=== PATIENT | male | born 1980 | race Caucasian/White ===

== ENCOUNTER 2016-09-28 16:26 | Inpatient (IN) | payer BC, OTHER ==
[~2016-09-28] VITALS: Ht 170.2 cm; Wt 85.3 kg
[2016-09-28] MEDS ORDERED: LORAZEPAM 1 MG TABLET PO PRN (19:30)
[2016-09-28] MEDS ORDERED: ONDANSETRON ODT 4 MG TAB.RAPDIS SL PRN (19:30)
[2016-09-28] MEDS ORDERED: DICYCLOMINE HCL 20 MG TABLET PO PRN (19:30)
[2016-09-28] MEDS ORDERED: MIRALAX 17 GM POWD.PACK PO PRN (19:30)
[2016-09-28] MEDS ORDERED: BACLOFEN 20 MG TABLET PO PRN (19:30)
[2016-09-28] MEDS ORDERED: ONDANSETRON 4 MG/2 ML VIAL IM PRN (19:30)
[2016-09-28] MEDS ORDERED: HYDROXYZINE PAMOATE 25 MG CAPSULE PO PRN (19:30)
[2016-09-28] MEDS ORDERED: MAGNESIUM HYDROXIDE 30 ML LIQUID UDC PO PRN (19:30)
[2016-09-28] MEDS ORDERED: MAG HYDROX/AL HYDROX/SIMETH 30 ML LIQUID UDC PO PRN (19:30)
[2016-09-28] MEDS ORDERED: LORAZEPAM 2 MG/1 ML VIAL IM PRN (19:30)
[2016-09-28] MEDS ORDERED: LOPERAMIDE HCL 2 MG CAPSULE PO PRN ×2 (19:30)
[2016-09-28] MEDS ORDERED: ACETAMINOPHEN 325 MG TABLET PO PRN (19:30)
[2016-09-28] MEDS ORDERED: PATIENT MAY USE OWN MED- MD OK PO PRN (19:30)
[2016-09-28 20:10] VITALS: BP 142/93
--- NOTE | 2016-09-28 20:25 | NUR ---
Pre-admission assessment Patient is a 36-year old, male, seen at intake, AAOx4, no SOB and no anxiety noted at this time. Discussed with patient admission policies of the unit. Patient is coherent and able to respond to questions appropriately. Patient reported that for the past 6 weeks he has been staying either in hotels or at friend's place. Vital signs taken and as follows: BS=133/93, P=94, O2 sat on RA=98%, RR=20, T=98.2. Pt verbalized instructions and teachings regarding disposal of narcotic and other controlled home meds, unit protocols such as taking of vital signs Q4H and handling and disposal of contraband.
[2016-09-28 20:34] LABS: BASOPHILS # (AUTO) 0.1 K/uL (0.0-8.0); BASOPHILS % (AUTO) 0.5 % (0.0-2.0); EOSINOPHILS # (AUTO) 0.1 K/uL (0.0-0.7); EOSINOPHILS % (AUTO) 0.5 % (0.0-7.0); HEMATOCRIT 45.5 % (40-50); HEMOGLOBIN 14.9 G/DL (14.0-18.0); LYMPHOCYTES % (AUTO) 18.7 % (20.5-51.5); MEAN CORPUSCULAR HEMOGLOBIN 29.9 UUG (27.0-31.0); MEAN CORPUSCULAR HGB CONC 33 g/dL (32.0-37.0); MEAN CORPUSCULAR VOLUME 91.3 FL (82.0-92.0); MONOCYTES # (AUTO) 0.6 K/UL (0.1-1.30); NEUTROPHILS # (AUTO) 7.9 K/UL (1.8-8.9); NEUTROPHILS % (AUTO) 74.3 % (38.5-71.5); PLATELET COUNT (AUTO) 403 K/UL (150-450); RED BLOOD CELL COUNT(AUTO) 4.99 MIL/UL (4.7-6.1); WHITE BLOOD COUNT (AUTO) 10.7 K/UL (4.0-11.2)
[2016-09-28 20:43] LABS: ETHANOL < 3 MG/DL (0-0)
[2016-09-28 20:45] VITALS: BP 140/89
[2016-09-28 20:47] LABS: ALANINE AMINOTRANSFERASE 30 U/L (16-63); ALKALINE PHOSPHATASE 97 U/L (50-136); ASPARTATE AMINOTRANSFERASE 20 U/L (15-37); BILIRUBIN,TOTAL 0.3 mg/dL (0.2-1.0); CARBON DIOXIDE 26 mmol/L (21-32); CHLORIDE 103 mmol/L (98-107); CREATININE 1.3 mg/dL (0.6-1.3); GLUCOSE 131 mg/dL (74-106); MAGNESIUM 2.1 mg/dL (1.8-2.4); POTASSIUM 3.9 mmol/L (3.5-5.1); TOTAL PROTEIN, SERUM 7.8 g/dL (6.4-8.2); UREA NITROGEN, BLOOD 16 mg/dL (7-18)
--- NOTE | 2016-09-28 20:50 | NUR ---
ADMISSION Patient is a 36-year old, male, admitted and escorted by [facility] at 2039 to unit. Patient verbalized that for the past 6 weeks, he has been staying in hotels or at his friends' place. Skin check done, no open skin noted. Patient denies Suicidal Ideation nor Homicidal Ideation at this time. No edema noted. Pt is ambulatory with steady gait. Pt stands 5'7" and weighs 188 pounds per standing scale. Vital signs are as follows: BP-140/93, T-98.4, P-82, RR-18 and SPO2 on RA=99%. Patient is AAOx4 and with no anxiety noted at this time. Lung sounds clear bilaterally upon auscultation. No cough noted and bowel sounds are present on all quadrants. PERRLA and pupils are 4 mm upon visual check. Pt reports No Known Allergies, on Regular Diet and is Full Code. Pt reports one episode of Partial Complex Seizure in 2012. Per pt, withdrawal symptoms are anxiety, depression, irritability, short attention span, generalized body pain, emotional, insomnia, restless legs, chills and sweats. Pt reports using the following substances: 1) Xtampza-started at age 21 and for the past 2 months has been using 40 mg PO daily until 09/20/2016, the day when he attempted suicide by trying to overdose on Xtampza. Pt brought himself to the ER of [facility] on the same day of trying to commit suicide. 2) Oxycontin-per pt, this was started on 09/20/2016 when he was admitted to the [facility] of [facility] after his ER visit due to suicide attempt. Last use was 09/27/2016 0930. 3) Methadone-started at age 32 and for the past 3 weeks he has been using 20 mg PO daily. Last use was 09/28/2016 at 0930. Patient verbalized the she does not take other substances besides the one mentioned above. He tested positive for Amphetamines for his UDS and patient stated that it is due to his medication Vyvanse Patient informed PMHx of Anxiety, Depression, one episode of Partial Complex Seizure in 2012, Viral Meningitis in 2010, Herpes-HSV 2 in 2011, Encephalitis in 2011, Occipital Neuralgia and attempted suicide last 09/20/2016. Home medications were reconciled. No PCP as of the moment but Psychiatrist is Dr. Chavez Hall. Patient denies smoking cigarettes. Oriented patient to room and instructed with the use of the call light, placed within reach. Fall, universal, seizure and safety precautions implemented. No c/o significant pain at this time. All needs met. Information relayed to Dr. Phillip. Patient refused PNA vaccine and Flu vaccine is out of season. COWS=6. Will continue to monitor.
[2016-09-28 20:55] LABS: *AMPHETAMINE, URINE POSITIVE (NEGATIVE); *BARBITURATE, URINE NEGATIVE (NEGATIVE); *CANNABINOID, URINE NEGATIVE (NEGATIVE); *COCCAINE, URINE NEGATIVE (NEGATIVE); *OPIATE, URINE NEGATIVE (NEGATIVE); *PHENCYCLIDINE SCREEN,URINE NEGATIVE (NEGATIVE)
[2016-09-28] MEDS: PREGABALIN 25 MG CAPSULE PO SCH (20:58)
[2016-09-28 21:07] LABS: THYROID STIMULATING HORMONE 1.201 mIU/mL (0.358-3.740)
[2016-09-28] MEDS ORDERED: PREG50CA PO ×2 (22:02)
[2016-09-28] MEDS ORDERED: LAMO200T PO (22:02)
[2016-09-28] MEDS ORDERED: MELA5TAB PO (22:02)
[2016-09-28] MEDS ORDERED: ACET-2605 PO (22:02)
[2016-09-28] MEDS ORDERED: LISD50CA2 PO (22:02)
[2016-09-28] MEDS ORDERED: TRAZ-144 PO (22:02)
[2016-09-28] MEDS ORDERED: BUPR-96 PO (22:02)
[2016-09-28] MEDS ORDERED: ESCI20TA PO (22:02)
[2016-09-28] MEDS ORDERED: METH150T PO (22:02)
[2016-09-28] MEDS ORDERED: VALA10002 PO (22:06)
[2016-09-28] MEDS: CLONIDINE HCL 0.1 MG TABLET PO PRN (22:18)
--- NOTE | 2016-09-28 22:18 | NUR ---
RN note PRN Clonidine Pt with VO=805/92, Pulse=94. Administered Clonidine 0.1 mg PO as ordered. Will reassess.
--- NOTE | 2016-09-28 23:15 | NUR ---
RN note reassess Pt's XJ=048/92, P=85. Clonidine was effective.
[2016-09-28] MEDS: TRAZODONE 50 MG TABLET PO PRN (23:25)
--- NOTE | 2016-09-28 23:26 | NUR ---
RN note PRN Robaxin, Trazodone and Benadryl Pt c/o generalized muscle pain=6/10 and per pt "I have an extreme case of insomnia". Dr. Phillip made aware. Administered Robaxin 750 mg PO, Trazodone 50 mg PO and Benadryl 50 mg PO. Will reassess.
[2016-09-28] MEDS ORDERED: METHOCARBAMOL 750 MG TABLET PO PRN (23:30)
[2016-09-28] MEDS ORDERED: diphenhydrAMINE 50 MG CAPSULE PO PRN (23:30)
[2016-09-28] MEDS ORDERED: METHOCARBAMOL 750 MG TABLET ONE (23:35)
[2016-09-28] MEDS ORDERED: diphenhydrAMINE 50 MG CAPSULE ONE (23:35)
[2016-09-29] VITALS: BP 130/85
--- NOTE | 2016-09-29 00:30 | NUR ---
RN note reassess Pt asleep on bed, no SOB nor facial grimacing noted.
[2016-09-29 04:00] VITALS: BP 132/88
--- NOTE | 2016-09-29 07:00 | NUR ---
Start of Shift Report from night nurse: pt is 36 y/o male here for Opiates dependence r/t oxycodone 40mg PO/d for 2 months, Methadone 20mg PO/d for 3 wks, Xtampza unknown does and frequency, OxyContin 20mg PO/d after admit to [facility] psych unit s/p suicidal attempt with OD on Opiate and was given the last dose 09/27/16; No taper or PRN given until MD approved and to be started 09/30/16 at [address] with COWS scale, eval and status. Pt is a full coded, NKA, Regular Diet, Fall and Seizure precautions ordered. V/S stable. Skin is intact. PRN Trazodone, Benadryl and Robaxin given last night. USD + Amphetamine since the states that he take a medication for ADHD. HHx: meningitis 2010, Seizure 2012, HSV-1, Anxiety, depression, encephalitis 2011, Occipital neuroglia. Last COWS 4. No abnormal labs endorsed to me. Pt is asleep in room. Will cont. to monitor the pt.
--- NOTE | 2016-09-29 07:09 | NUR ---
End of Shift Patient is a 36-year old, male, admitted for Opioid Dependence. Pt with MHx of Viral Meningitis (2010), Partial Complex Seizure (2012), Herpes-HSV 2 (2011), Encephalitis (2011), Occipital Neuralgia, Attempted Suicide-09/20/2016, Anxiety and Depression. Pt on Regular Diet, is Full Code and with NKA. Pt is AAOx4, with mild anxiety noted. No SOB noted. Pt is ambulatory with steady gait, no skin issues. Fall, seizure, universal and safety prec in place. Call light within reach. Latest COWS=4, slept for 5 hours. Endorsed to AM shift nurse for continuity of care.
--- NOTE | 2016-09-29 07:10 | NUR ---
Start of Shift Report from the night nurse: pt is a 56 y/o male here for Etoh r/t Vodka 1 pint a day for 2 months, Marijuana occasionally used monthly, benzo r/t Valium 1tab of unknown dose used occasionally; 5 day Ativan taper ordered. Pt is a full code, NKA, fall and seizure precautions ordered. HHx: Chronic pain, HTN, Raymundo's Palsy, Hernia 2010 and multiple relapses. Skin is intact. No PRN'd given last night. No new orders or labs endorsed to me. Last CIWA 2. Pt is asleep in the room. Will cont. to monitor the pt. Addendum: 09/29/16 at 0807 by ANTONY ARRINGTON RN Error: WRONG PT CHARTING OF START OF SHIFT.
[2016-09-29 08:00] VITALS: BP 112/77
[2016-09-29] MEDS ORDERED: TUBERCULIN,PURIF.PROT.DERIV. 5 TU/0.1 ML TEST ID ONE (09:00)
--- NOTE | 2016-09-29 09:45 | NUR ---
Medication Non-Administration and PRN Medication Administration Pt refused the Lyrica scheduled at 0900. I will notify Dr. Phillip since the pt states that he wants it given with other medications. Pt c/o PHILLIPS; PRN Excedrin 1tab given as ordered. Will reassess in 1H.
[2016-09-29] MEDS: MULTIVITAMINS,THERAPEUTIC TABLET PO SCH (09:58)
[2016-09-29] MEDS: PREGABALIN 25 MG CAPSULE PO SCH ×3 (09:59→21:45)
[2016-09-29] MEDS: ASPIRIN/ACETAMINOPHEN/CAFFEINE TABLET PO PRN (10:11)
--- NOTE | 2016-09-29 10:45 | NUR ---
Reassessment Pt denies PHILLIPS; Excedrin is effective. Will cont. to monitor the pt.
[2016-09-29] MEDS ORDERED: PATIENT MAY USE OWN MED- MD OK PO PRN (11:00)
[2016-09-29] MEDS ORDERED: PREGABALIN 25 MG CAPSULE PO ONE (11:15)
[2016-09-29] MEDS ORDERED: METHOCARBAMOL 750 MG TABLET PO ONE (11:15)
[2016-09-29] MEDS: diphenhydrAMINE 50 MG CAPSULE PO PRN ×2 (11:44→21:45)
--- NOTE | 2016-09-29 11:45 | NUR ---
New Orders & PRN Medication Administration Pt is in his room, in bed very agitated, anxious and irritable re: the medication reconciliation that needs to be done; I explained to the pt that the psych meds are to be reconciled by the psychiatrist and that he will be in today to reconcile them. Pt c/o muscle pain and tension; Lyrica 50mg ONCE with PRN Benadryl 50mg and Robaxin 750mg. Will reassess in 30minutes to 1H. Will cont. to monitor the pt.
[2016-09-29 12:00] VITALS: BP 112/73
--- NOTE | 2016-09-29 12:45 | NUR ---
Reassessment Pt is in bed and states that the muscle tension is decreased, and has decreased anxiety; Benadryl is effective. Will cont. to monitor the pt.
[2016-09-29] MEDS ORDERED: ACETAMINOPHEN ES 500 MG TABLET PO PRN (13:00)
[2016-09-29] MEDS ORDERED: CYCL10TA9 PO (14:23)
--- NOTE | 2016-09-29 14:46 | NUR ---
Therapist prompted client about group times. Client stated he would try to make it to the afternoon group if he is "feeling ok."
[2016-09-29] MEDS: IBUPROFEN 600 MG TABLET PO PRN ×2 (14:47→23:04)
[2016-09-29] MEDS: METHOCARBAMOL 750 MG TABLET PO SCH ×2 (14:52→21:45)
--- NOTE | 2016-09-29 14:56 | NUR ---
PRN Medication Administration and New Orders Pt is room very agitated, restless, and angry re: pending psychiatric evaluation and repeately making the same statements after explanations of evaluations, pt c/o neck aching with muscle tension and constipation; PRN's: Miralax, Motrin 600mg and Ativan 2mg for anxiety all given with scheduled 1500 medications. New orders in process for Lexapro, Wellbutrin and Lamictal pending. Will reassess in 1H.
--- NOTE | 2016-09-29 15:22 | NUR ---
MD COMMUNICATION Spoke to Dr. Lara and got telephone orders to continue patient home medications. Orders added: Wellbutrin Xl 150mg PO daily, Lexapro 20 mg PO daily, and Lamictal 200 mg PO daily. Read back to physician. Primary nurse to administer medications as ordered.
[2016-09-29] MEDS: ESCITALOPRAM OXALATE 10 MG TABLET PO SCH (15:33)
[2016-09-29] MEDS: LAMOTRIGINE 200 MG TABLET PO SCH ×2 (15:33→18:30)
[2016-09-29] MEDS: buPROPion XL 150 MG TAB.SR.24H PO SCH (15:33)
[2016-09-29 16:00] VITALS: BP 147/88
--- NOTE | 2016-09-29 16:00 | NUR ---
Reassessment Pt is taking a nap in his bed and resting, no non-verb s/sx of pain, anxiety or respiratory depression noted. Will cont. to monitor the pt.
[2016-09-29] MEDS ORDERED: PATIENT MAY USE OWN MED- MD OK PO SCH (17:30)
--- NOTE | 2016-09-29 18:50 | NUR ---
Medication Non-Administration No administration of Lamictal scheduled at 1830pm since the home medication is reconciled to be given as " 200mg daily" and the Lamictal 200mg given as a ONCE dose at 1533pm. Will cont. to monitor the pt.
--- NOTE | 2016-09-29 19:21 | NUR ---
End of the Shift Report to the night nurse: pt is 36 y/o male here for Opiates dependence r/t oxycodone 40mg PO/d for 2 months, Methadone 20mg PO/d for 3 wks, Xtampza unknown does and frequency, OxyContin 20mg PO/d after admit to [facility] psych unit s/p suicidal attempt with OD on Opiate and was given the last dose 09/27/16; No taper or PRN given until approved and to be started 09/30/16 at [address] with COWS scale, eval and status. Pt is a full coded, NKA, Regular Diet, Fall and Seizure precautions ordered. V/S stable. Skin is intact. PRN Ativan 2mg at 1456pm, Motrin, Miralax and Benadryl. New Orders for medication reconciliation of Wellbutrin, Lexapro and Lamictal also Lyrica to be given with Robaxin & with pt's request Benadryl . HHx: meningitis 2010, Seizure 2012, HSV-1, Anxiety, depression, encephalitis 2011, Occipital neuroglia. Pt is A&O x 4 ambulates independently. Features symmetrical, PERRLA 4-5mm dilated, mild headache and moderate muscle tension. Pt denies chest pain and no SOB noted. No N/V/D noted but c/o constipation r/t narcotic abuse so PRN Miralax given. Pt denies dysuria. Skin is intact and PPD test done on Rt FA. No hallucinations, delusions or suicidal ideations notes. Pt is very depressed and w/d to self with moderate anxiety and refused to attend group therapy at this time. N onew labs endorse to night nurse. Last COWS 3.
[2016-09-29] MEDS ORDERED: LORAZEPAM 1 MG TABLET PO PRN (19:45)
--- NOTE | 2016-09-29 19:50 | NUR ---
MD Communication: New order from to renew for an additional day 2mg Lorazepam PO Q4HPRN for S/S of severe withdrawal or agitation.
[2016-09-29 20:00] VITALS: BP 125/88
--- NOTE | 2016-09-29 20:00 | NUR ---
Start of Shift Note: Report received from day shift nurse. Pt is a 36 yo male admitted on 09/28/2016 for medically-supervised withdrawal from opiates. Pt reports taking 40mg Oxycodone daily for 2 months last used 09/20, 20mg Methadone daily for 3 weeks last used 09/28, and 20mg OxyContin daily for 7 days while at [facility] where pt was admitted for suicidal ideation. Subutex taper not yet initiated. Pt received with last COWS=3, and PRN's Ativan, Motrin, and Miralax were given during day shift. Full code, NKDA/NKFA, regular diet. Pt reports PMHx: viral meningitis, partial complex SZ, HSV-2, anxiety, MDD, encephalitis, occipital neuralgia, suicide attempt on 09/20/16. Pt received in room and reports anxiety. Bed is in low position and locked, side rails up x2, call light within reach. Will continue to monitor.
[2016-09-29] MEDS: MELATONIN 3 MG TABLET PO PRN (21:45)
--- NOTE | 2016-09-29 21:45 | NUR ---
PRN Melatonin and PRN Benadryl: Patient complains of inability to sleep. Administered PRN Melatonin as ordered. Patient complains of anxiety. Administered PRN Benadryl as ordered. Will continue to monitor.
--- NOTE | 2016-09-29 22:45 | NUR ---
PRN Reassessment: Patient states that PRN Benadryl was mildly effective in reducing anxiety, but is still unable to sleep. PRN Melatonin not effective.
[2016-09-29] MEDS: TRAZODONE 50 MG TABLET PO PRN (23:04)
--- NOTE | 2016-09-29 23:04 | NUR ---
PRN's Trazodone, Motrin, Baclofen: Patient unable to sleep after PRN Melatonin administration. Administered PRN Trazodone as ordered. Patient complains of 4/10 body aches and myalgia. Administered PRN Motrin and PRN Baclofen as ordered. Will continue to monitor.
[2016-09-30] VITALS: BP 120/55
--- NOTE | 2016-09-30 | NUR ---
COWS Deferred: COWS is deferred for sleep. V/S stable. All safety precautions are in place. Will continue to monitor. Addendum: 09/30/16 at 0245 by BETZY SPENCER RN Amended: Links added.
--- NOTE | 2016-09-30 00:05 | NUR ---
PRN Reassessment: Patient is in bed with eyes closed. Respirations are even and unlabored. No s/s of acute distress noted. PRN's Motrin, Baclofen, and Trazodone effective AEB patient's ability to rest. Will continue to monitor.
--- NOTE | 2016-09-30 04:00 | NUR ---
Vitals Refused, COWS Deferred: Patient refuses ordered 04:00 V/S, states he prefers to sleep. Patient educated on risks/benefits but continued to refuse. COWS is deferred for sleep. All safety precautions are in place. Will continue to monitor. Addendum: 09/30/16 at 0428 by BETZY SPENCER RN Amended: Links added.
--- NOTE | 2016-09-30 06:51 | NUR ---
End of Shift Note: Pt is a 36 y/o male admitted to [facility] on 09/28/2016 for medically-supervised withdrawal from opiates. Pt reported PMHx of viral meningitis, partial complex SZ, HSV-2, encephalitis, occipital neuralgia, MDD, anxiety, suicide attempt on 09/20/16. Pt is a full code. Pt reports NKDA/NKFA. Pt is on a regular diet. Pt reported taking 40mg Oxycodone daily for 2 months (last use 09/20), 20mg Methadone daily for 3 weeks (last use 09/28), and 20mg OxyContin daily for 7 days while at [facility] where pt was admitted for suicidal ideation/attempt. Subutex taper not yet initiated. Scheduled medication regime effectively managed s/s of withdrawal this shift, in addition to PRN Benadryl for anxiety, PRN Motrin for pain, and PRN Baclofen for myalgia. Last COWS=4 at 20:00. V/S stable throughout shift. Total fluid intake this shift: 1500 ml; output: urine x 1 and BM x 0. PRN Melatonin given for insomnia, which was not effective, and then PRN Trazodone was given, which was effective and pt slept 7 hours. Pt is currently in bed, all needs attended and met. Pt endorsed to day shift nurse.
--- NOTE | 2016-09-30 07:10 | NUR ---
Start of Shift Report from night nurse with update: pt is 36 y/o male here for Opiates dependence r/t oxycodone 40mg PO/d for 2 months, Methadone 20mg PO/d for 3 wks, Xtampza unknown does and frequency, OxyContin 20mg PO/d after admit to [facility] psych unit s/p suicidal attempt with OD on Opiate and was given the last dose 09/27/16; No taper or PRN given until MD approved and to be started today at [address] with COWS level before giving the medication. Pt is a full coded, NKA, Regular Diet, Fall and Seizure precautions ordered. V/S stable. Skin is intact. HHx: meningitis 2010, Seizure 2012, HSV-1, Anxiety, depression, encephalitis 2011, Occipital neuroglia. PRN Benadryl, Melatonin, Trazodone, Motrin, Baclofen, Last COWS 4. Pt is asleep in room. Will cont. to monitor the pt.
[2016-09-30 08:00] VITALS: BP 116/77
[2016-09-30 08:09] LABS: HEPATITIS B SURFACE AG Negative (Negative)
[2016-09-30] MEDS: LAMOTRIGINE 200 MG TABLET PO SCH ×2 (09:00→09:13)
[2016-09-30] MEDS: METHOCARBAMOL 750 MG TABLET PO SCH ×3 (09:12→21:44)
[2016-09-30] MEDS: PREGABALIN 25 MG CAPSULE PO SCH ×3 (09:12→21:44)
[2016-09-30] MEDS: buPROPion XL 150 MG TAB.SR.24H PO SCH (09:12)
[2016-09-30] MEDS: MULTIVITAMINS,THERAPEUTIC TABLET PO SCH (09:12)
[2016-09-30] MEDS: diphenhydrAMINE 50 MG CAPSULE PO PRN (09:12)
[2016-09-30] MEDS: ESCITALOPRAM OXALATE 10 MG TABLET PO SCH (09:13)
[2016-09-30] MEDS: ASPIRIN/ACETAMINOPHEN/CAFFEINE TABLET PO PRN (10:27)
--- NOTE | 2016-09-30 10:30 | NUR ---
PRN Medication Administration Pt is in room and c/o PHILLIPS; PRN Excedrin 1 tab given as ordered. Will reassess in 1H.
--- NOTE | 2016-09-30 10:38 | NUR ---
Therapist prompted client to attend daily group sessions. Client stated that he would try to attend.
[2016-09-30] MEDS ORDERED: LORAZEPAM 1 MG TABLET PO PRN (11:15)
--- NOTE | 2016-09-30 11:42 | NUR ---
ENDORSEMENT Pt endorsed to me. Pt received in room. No distress noted at this time.
--- NOTE | 2016-09-30 11:57 | NUR ---
Endorsement Endorsed pt to RN Jonn with report, SBAR, recommendations of pt education re: medications and pending orders.
[2016-09-30 12:48] VITALS: BP 122/72
[2016-09-30] MEDS: diphenhydrAMINE 50 MG CAPSULE PO SCH ×2 (14:36→21:44)
[2016-09-30] MEDS: IBUPROFEN 600 MG TABLET PO PRN (16:26)
--- NOTE | 2016-09-30 16:28 | NUR ---
PRN Pt states has headache /. Motrin po prn per MD order given and tolerated well.
[2016-09-30] MEDS: CLONIDINE HCL 0.1 MG TABLET PO PRN (17:44)
[2016-09-30 17:47] VITALS: BP 125/82
--- NOTE | 2016-09-30 17:50 | NUR ---
PRN Pt states feels very anxious and restless. Catapres po prn per MD order given and tolerated well.
--- NOTE | 2016-09-30 17:50 | NUR ---
PRN Pt states feels anxious and restless. Ativan po prn per MD order given and tolerated well.
--- NOTE | 2016-09-30 18:17 | NUR ---
END OF SHIFT Pt 36 y/o male admitted for opioid dependence. Pt alert and oriented to name, place, and time. Perrla. Skin warm and dry to touch. Pt with periods of anxiety this afternoon. Respirations even and unlabored. Bilateral hand tremors noted slightly. Pt still on observation. Pt attended group activity. Bed on lowest position with side rails x2 up for safety. Call light within reach. No distress noted at this time.
--- NOTE | 2016-09-30 19:10 | NUR ---
Start of shift note Received report from day shift nurse. Pt is a 36 yo male, A+Ox4, presenting to [facility] for Opiate/Methadone dependence. Pt has NKA, is on Full Code status, and on Regular diet. Pt is on Fall and Seizure precautions. Pt has HX of Meningitis, Partial complex seizure, Herpes simplex 2, anxiety, major depression disorder, encephalitis, occipital neuralgia, and Suicidal ideations. Pt is on PRN Medications. No s/s of distress noted at this time. Respirations even and unlabored. Will continue to monitor.
[2016-09-30 20:20] VITALS: BP 121/78
[2016-09-30] MEDS: MELATONIN 3 MG TABLET PO PRN (23:28)
[2016-09-30] MEDS: TRAZODONE 50 MG TABLET PO PRN (23:28)
--- NOTE | 2016-09-30 23:31 | NUR ---
PRN Melatonin and Trazodone Pt c/o inability to sleep and requested for PRN Melatonin and Trazodone. Medications given and tolerated well. Will reassess within 1 HR. Will continue to monitor.
[2016-10-01] VITALS (8 sets, daily range): BP systolic 124–142; BP diastolic 74–90
--- NOTE | 2016-10-01 00:25 | NUR ---
PRN Melatonin and Benadryl Reassessment Medications effective. Pt is resting well in bed. No s/s of ASE/distress noted at this time. Respirations even and unlabored. Will continue to monitor. Addendum: 10/01/16 at 0550 by KRISTEL ELLISON LVN PRN Melatonin and Trazodone Reassessment
--- NOTE | 2016-10-01 06:55 | NUR ---
End of shift note Pt is a 36 yo male, A+Ox4, presenting to [facility] for Opiate/Methadone dependence. Pt has NKA, is on Full Code status, and on Regular diet. Pt is on Fall and Seizure precautions. Pt has HX of Meningitis, Partial complex seizure, Herpes simplex 2, anxiety, major depression disorder, encephalitis, occipital neuralgia, and Suicidal ideations. Pt is on PRN Medications. Pt was given PRN Melatonin and Trazodone @2331. Pt slept for a t total of 8 HRS. Last COWS: 1 @0400. No s/s of distress noted at this time. Respirations even and unlabored. Will endorse to day shift nurse.
--- NOTE | 2016-10-01 08:03 | NUR ---
START OF SHIFT Pt 36 y/o male admitted for opioid dependence. Pt received in room on bed with eyes closed resting, but easily arousable to name. Pt alert and oriented to name, place, and time. Perrla. Skin warm and dry to touch. Respirations even and unlabored. It was reported that pt slept for 8 hours last night. Bed on lowest position with side rails x2 up for safety. Call light within reach. No distress noted at this time.
[2016-10-01] MEDS: buPROPion XL 150 MG TAB.SR.24H PO SCH (08:23)
[2016-10-01] MEDS: METHOCARBAMOL 750 MG TABLET PO SCH ×3 (08:23→20:37)
[2016-10-01] MEDS: PREGABALIN 25 MG CAPSULE PO SCH ×3 (08:23→20:37)
[2016-10-01] MEDS: MULTIVITAMINS,THERAPEUTIC TABLET PO SCH (08:23)
[2016-10-01] MEDS: LAMOTRIGINE 200 MG TABLET PO SCH (08:23)
[2016-10-01] MEDS: diphenhydrAMINE 50 MG CAPSULE PO SCH ×3 (08:23→20:38)
[2016-10-01] MEDS: ESCITALOPRAM OXALATE 10 MG TABLET PO SCH (08:23)
--- NOTE | 2016-10-01 19:10 | NUR ---
Start of Shift Patient Received. Patient is in his room, awake, alert and verbally responsive. Breathing even and non labored. Patient is verbalizing pain due to a headache and is requesting pain medication. Explained to patient that medications would be reviewed and administered accordingly. Patient verbalized understanding. Patient is a 36 year old male, admitted 09/28/16 for Opioid Dependence under the care of Dr. Phillip. Patient was place on PRN medications for increased signs and symptoms of withdrawal. Subutex available if COWS scores noted to be 12 with MD aware. Patient verbalized no known allergies, wishes to be full code, following a regular diet, placed on fall and seizure precautions, skin noted intact. Past Medical History noted as Viral Meningitis (2010), Partial Complex Seizure (2012), Encephalitis (2011), Herpes _HSV 2 (2011), Occipital Neuralgia, anxiety, Major depressive Disorder, Encephalitis (2011), Suicide Attempt 09/20/16. Per endorsement, patient denies suicidal ideations. At 1600 COWS score noted to be 3. All needs attended to promptly. Will continue plan of care as ordered.
[2016-10-01] MEDS: IBUPROFEN 600 MG TABLET PO PRN (19:42)
--- NOTE | 2016-10-01 19:46 | NUR ---
PRN Medication Administration Patient is verbalizing pain of 4/10 due to headache. Patient states "I would like something now before it gets really bad." All non pharmacological interventions noted not effective. PRN Motrin administered as per orders. will continue to monitor.
--- NOTE | 2016-10-01 20:40 | NUR ---
PRN Medication Reassessment Patient is still verbalizing pain of 4/10 due to headache. patient states "I dont think that the Motrin works but its ok. I hope the Lyrica works." Will continue to monitor.
[2016-10-01] MEDS: CLONIDINE HCL 0.1 MG TABLET PO PRN (22:59)
[2016-10-01] MEDS: MELATONIN 3 MG TABLET PO PRN (23:10)
--- NOTE | 2016-10-01 23:10 | NUR ---
PRN Medication Administration Patient verbalizing increased anxiety and inability of falling asleep. All non pharmacological interventions noted to be not effective. PRN Clonidine and PRN Melatonin administered as per order. Will continue to monitor.
[2016-10-02] VITALS (7 sets, daily range): BP systolic 108–135; BP diastolic 68–84
[2016-10-02] MEDS: TRAZODONE 50 MG TABLET PO PRN (00:29)
--- NOTE | 2016-10-02 00:30 | NUR ---
PRN Medication Reassessment/PRN Medication Administration Patient verbalizing inability of falling asleep. PRN Melatonin noted not effective. Patient is verbalizing PRN clonidine noted to be effective in minimizing anxiety. Patient requesting for PRN Trazodone due to Melatonin not effective. PRN Trazodone administered as per orders. Will continue to monitor.
--- NOTE | 2016-10-02 02:00 | NUR ---
PRN Medication Reassessment Patient noted awake verbalizing PRN Trazodone not effective. Patient verbalized "im going to try to read until I sleep." Will endorse to morning shift to have MD review medications.
--- NOTE | 2016-10-02 07:08 | NUR ---
End of Shift Patient is in bed sleeping but easily arousable to verbal stimuli. Breathing even and non labored. No signs of pain or discomfort noted. Patient verbalized no known allergies, full code, regular diet, placed on fall and seizure precautions, skin noted intact. Past Medical History noted as Viral Meningitis (2010), Partial Complex Seizure (2012), Encephalitis (2011), Herpes _HSV 2 (2011), Occipital Neuralgia, anxiety, Major depressive Disorder, Encephalitis (2011), Suicide Attempt 09/20/16. Patient denies suicidal ideations. Patient was given PRN Motrin, Melatonin, Clonidine, and Trazodone. Patient verbalized that Motrin, melatonin, and trazodone noted effective. Will endorse to morning shift to have MD reassess medication. All needs attended to promptly. Will endorse to continue to monitor.
--- NOTE | 2016-10-02 07:53 | NUR ---
START OF SHIFT Pt 36 y/o male admitted for opioid dependence. Pt received in room on bed with eyes closed resting, but easily arousable to name. Pt alert and oriented to name, place, and time. Perrla. Skin warm and dry to touch. Respirations even and unlabored. It was reported that pt slept for 1 hour last night. Bed on lowest position with side rails x2 up for safety. Call light within reach. No distress noted at this time.
--- NOTE | 2016-10-02 08:15 | NUR ---
PRN Pt states feels anxious. Catapres po prn per MD order given and tolerated well.
[2016-10-02] MEDS: MULTIVITAMINS,THERAPEUTIC TABLET PO SCH (08:21)
[2016-10-02] MEDS: PREGABALIN 25 MG CAPSULE PO SCH ×3 (08:21→21:45)
[2016-10-02] MEDS: LAMOTRIGINE 200 MG TABLET PO SCH (08:21)
[2016-10-02] MEDS: buPROPion XL 150 MG TAB.SR.24H PO SCH (08:21)
[2016-10-02] MEDS: ESCITALOPRAM OXALATE 10 MG TABLET PO SCH (08:21)
[2016-10-02] MEDS: METHOCARBAMOL 750 MG TABLET PO SCH ×3 (08:22→21:45)
[2016-10-02] MEDS: diphenhydrAMINE 50 MG CAPSULE PO SCH ×3 (08:22→21:45)
[2016-10-02] MEDS: CLONIDINE HCL 0.1 MG TABLET PO PRN (08:22)
--- NOTE | 2016-10-02 09:15 | NUR ---
FITZ SERNA Pt observed in room on bed watching television.
--- NOTE | 2016-10-02 10:15 | NUR ---
ENDORSEMENT Endrosed pt to nurse. VS wnl. No distress noted.
--- NOTE | 2016-10-02 10:16 | NUR ---
ASSUMED CARE Assumed care for patient at 1016, all pertinent information discussed. will continue to monitor.
[2016-10-02] MEDS ORDERED: TRAZODONE 50 MG TABLET PO PRN (11:00)
[2016-10-02] MEDS ORDERED: LORAZEPAM 1 MG TABLET PO PRN (11:30)
[2016-10-02] MEDS ORDERED: PSYLLIUM SEED PACKET PO PRN (12:30)
[2016-10-02] MEDS: IBUPROFEN 600 MG TABLET PO PRN (14:01)
--- NOTE | 2016-10-02 14:02 | NUR ---
PRN MOTRIN/METAMUCIL Patient c/o generalized body aches 6/10, and c/o feeling constipated. Provided with non pharmacological interventions with no relief, administered Motrin as ordered, will monitor effectiveness. Also administer Metamucil as ordered for constipation, will monitor effectiveness, patient as encouraged to increase PO fluid intake as tolerated, will continue to monitor.
--- NOTE | 2016-10-02 15:02 | NUR ---
MOTRIN REASSESSMENT Patient reports medication effective, patient current pain level 0/10, will continue to monitor. safety measures in place.
--- NOTE | 2016-10-02 16:19 | NUR ---
Therapist prompted client about group times. Client said he was too tired today.
--- NOTE | 2016-10-02 18:53 | NUR ---
END OF SHIFT Patient alert and oriented x4, vital signs were stable during shift. Patient is compliant with therapeutic plan of care. Admitting Dx:Opiate/Methadone dependence, Patient continues under close observation. COW score and vital signs monitored closely during shift. 1300 assessment patient presented with: mild bone and joint aches and mild anxiety with cow score of: 2; 1700 assessment patient presented with mild bone and joint aches, and mild anxiety with cow score of: 2. During shift administered PRN: Metamucil and Motrin as ordered, medications were effective one hour post administration. All due medications were administered as ordered. Patient encouraged adequate PO fluid intake as tolerated. Encouraged patient to attend group therapies/sessions to learn new coping skills to prevent relapse, denies SI/HI. Fall and seizure precautions observed at all times, all needs met and rendered, will continue to monitor. Patient endorsed to wearing apparel folder nurse, all pertinent information discussed.
--- NOTE | 2016-10-02 19:20 | NUR ---
Start of Shift Patient Received. Patient verbalizing of increased anxiety, noted to be blunt and irritable. Patient noted to be clenching jaw and rocking back and forth, and crying. Patient verbalizing I feel like im going to have a panic attack. Encouraged patient to get out of room, go for a walk, shower. Patient noted to get upset and request for medication. Explained to patient that medications would be reviewed. Patient is a 36 year old male, admitted 09/28/16 for Opioid Dependence under the care of Dr. Phillip. Patient was place on PRN medications for increased signs and symptoms of withdrawal. Subutex available if COWS scores noted to be 12 with MD aware. Patient verbalized no known allergies, wishes to be full code, following a regular diet, placed on fall and seizure precautions, skin noted intact. Past Medical History noted as Viral Meningitis (2010), Partial Complex Seizure (2012), Encephalitis (2011), Herpes -HSV 2 (2011), Occipital Neuralgia, anxiety, Major depressive Disorder, Encephalitis (2011), Suicide Attempt 09/20/16. Per endorsement, patient was seen by MD with new order for PRN Ativan 2mg Q4H for agitation and increased signs of withdrawal. At 1600 COWS score noted to be 2. All needs attended to promptly. PRN Ativan to be administered. Will continue plan of care as ordered.
--- NOTE | 2016-10-02 19:30 | NUR ---
PRN Medication Administration patient noted in room noted in bed rocking back and forth, crying, with jaw clenched, with severe anxiety. PRN Ativan 2mg administered as per order. Will continue to monitor.
--- NOTE | 2016-10-02 20:30 | NUR ---
PRN Medication Reassessment Patient noted laying in bed. breathing even and non labored. No signs of pain or discomfort noted. CIWA noted to be 3 and COWS 5. Offered Routine medications but patient requested later time. will continue to monitor.
[2016-10-02] MEDS: MELATONIN 3 MG TABLET PO PRN (21:46)
[2016-10-03 00:42] VITALS: BP 110/65
[2016-10-03 04:34] VITALS: BP 105/62
--- NOTE | 2016-10-03 07:04 | NUR ---
End of Shift Patient is in bed sleeping but easily arousable to verbal stimuli. Breathing even and non labored. No signs of pain or discomfort noted. Patient verbalized no known allergies, full code, regular diet, placed on fall and seizure precautions, skin noted intact. Past Medical History noted as Viral Meningitis (2010), Partial Complex Seizure (2012), Encephalitis (2011), Herpes _HSV 2 (2011), Occipital Neuralgia, anxiety, Major depressive Disorder, Encephalitis (2011), Suicide Attempt 09/20/16. Patient denies suicidal ideations. Patient was given PRN Ativan for severe anxiety. Last noted COWS is 5. All needs attended to promptly. Will endorse to continue to monitor.
--- NOTE | 2016-10-03 07:56 | NUR ---
START OF SHIFT NOTE Received patient this morning AOx4. Patient states he slept on and off and is awake much earlier than he usually is. He states he feels okay this morning. Patient placed on PRN medications only with Subutex available for elevated COWS score if needed. PRN Ativan, Trazodone, and Melatonin given per night nurse with effectiveness. Patient slept 7 hours. Last CIWA 3 COWS 5. Encouraged patient to increase fluid intake to facilitate detox. Encouraged patient to attend groups and activities. Will provide safe and supportive environment. Will monitor.
[2016-10-03 08:00] VITALS: BP 124/85
[2016-10-03] MEDS: LAMOTRIGINE 200 MG TABLET PO SCH (08:13)
[2016-10-03] MEDS: diphenhydrAMINE 50 MG CAPSULE PO SCH ×2 (08:13→15:00)
[2016-10-03] MEDS: ESCITALOPRAM OXALATE 10 MG TABLET PO SCH (08:13)
[2016-10-03] MEDS: buPROPion XL 150 MG TAB.SR.24H PO SCH (08:13)
[2016-10-03] MEDS: MULTIVITAMINS,THERAPEUTIC TABLET PO SCH (08:13)
[2016-10-03] MEDS: METHOCARBAMOL 750 MG TABLET PO SCH ×2 (08:13→15:00)
[2016-10-03] MEDS: PREGABALIN 25 MG CAPSULE PO SCH ×2 (08:13→15:00)
[2016-10-03] MEDS: ASPIRIN/ACETAMINOPHEN/CAFFEINE TABLET PO PRN (10:21)
--- NOTE | 2016-10-03 10:22 | NUR ---
PRN medication PRN Excedrin given for headache. patient reports pain 4/10 on pain scale. Will reassess
--- NOTE | 2016-10-03 11:05 | NUR ---
PRN REASSESSMENT Patient states he has no pain. He says his head is a 0/10 on pain scale. WIll monitor
--- NOTE | 2016-10-03 11:43 | NUR ---
Clinician asked client if he would attend the group later today. Client declined.
[2016-10-03 12:00] VITALS: BP 137/82
[2016-10-03] MEDS ORDERED: METH-406 PO (13:55)
[2016-10-03] MEDS ORDERED: DICY20TA28 PO (13:55)
[2016-10-03] MEDS ORDERED: IBUP-1955 PO (13:55)
[2016-10-03] MEDS ORDERED: TRAZ-144 PO (13:55)
[2016-10-03] MEDS ORDERED: PREG25CA PO (13:55)
--- NOTE | 2016-10-03 15:45 | NUR ---
AMA NOTE Patient left AMA, Pt refused to comply with treatment. Patient educated about the risks and consequences of leaving agaist medical advice, pt verbalized understanding but was adamant about leaving. Multiple staff members including doctors, patient advocates and nurses attempted to reason with pt with out any success. VS WNL, Skin intact. Patient denies S/I or H/I. Patient's doctors were notified of patient's decision and are aware. Patient was given a list of community resources, AMA forms explained and signed. All belongings given back to patient. Patient left AMA on 10/03/16 at 1538.
== END 2016-10-03 15:38 | disposition left against medical advice (07) | DRG 894 ==
LOC: SRC 19:04
PROVIDERS: ADMIT Internal Medicine; ATTEND Internal Medicine
PROC: HZ2ZZZZ Detoxification Services for Substance Abuse Treatment (ICD-10-PCS; principal; 2016-09-28)
PROC: HZ41ZZZ Group Counseling for Substance Abuse Treatment, Behavioral (ICD-10-PCS; 2016-09-30)
PROC: HZ31ZZZ Individual Counseling for Substance Abuse Treatment, Behavioral (ICD-10-PCS; 2016-09-30)
DX: F11.23 Opioid dependence with withdrawal (principal); F33.2 Major depressive disorder, recurrent severe without psychotic features; M54.81 Occipital neuralgia; G43.909 Migraine, unspecified, not intractable, without status migrainosus; F90.9 Attention-deficit hyperactivity disorder, unspecified type; Z86.61 Personal history of infections of the central nervous system; Z83.3 Family history of diabetes mellitus; Z81.8 Family history of other mental and behavioral disorders; G47.00 Insomnia, unspecified; G89.29 Other chronic pain; Z91.5 Personal history of self-harm; F12.90 Cannabis use, unspecified, uncomplicated; F41.9 Anxiety disorder, unspecified; I15.9 Secondary hypertension, unspecified; R73.9 Hyperglycemia, unspecified
CPT/HCPCS: 36415; 70030-TC; 80307; 80324; 83735; 84443; 85025; 86580; 86592; 86705; 86803; 87340; 87806; 93005; A4663; G0480; Q0163